=== PATIENT | female | born 1950 | race Caucasian/White ===

== ENCOUNTER 2019-04-29 11:46 | Day surgery (SDC) | payer OTHER ==
[~2019-04-29] VITALS: Ht 177.8 cm; Wt 78.0 kg
[~2019-04-29 11:46] MED LIST: B COMPLEX1 EACH PO; CARDIO TABS PO; CARTIA XT180 M1 PO; DICLOFENAC SODI75 MG PO; GYNODIOL0.5 MG PO; LEVOTHYROXINE112 MCG PO; NEURONTIN600 MG PO; PANTOPRAZOLE SO40 M1 PO; PROBIOTIC1 EAC7 PO; SULFASALAZINE500 M4 PO; TRIGLIDE160 MG PO; VENLAFAXINE HC150 M1 PO
[2019-04-29 13:43] VITALS: BP 144/67
== END 2019-04-29 16:37 | disposition home or self-care (01) ==
LOC: OR 11:46 → TBA 16:10 → OR 16:37
DX: M20.42 Other hammer toe(s) (acquired), left foot (principal); S93.525A Sprain of metatarsophalangeal joint of left lesser toe(s), initial encounter; M24.575 Contracture, left foot; M21.6X2 Other acquired deformities of left foot; I10 Essential (primary) hypertension; E78.5 Hyperlipidemia, unspecified; K21.9 Gastro-esophageal reflux disease without esophagitis; E03.9 Hypothyroidism, unspecified; F32.9 Major depressive disorder, single episode, unspecified; Z98.890 Other specified postprocedural states; Z79.899 Other long term (current) drug therapy; Z98.41 Cataract extraction status, right eye; Z98.42 Cataract extraction status, left eye; Z90.49 Acquired absence of other specified parts of digestive tract
CPT/HCPCS: 50101; 50386; 50951; 55430; 56526; 56527; 57091; 57178; 57277; 57278; 62110; 62900; 70005